=== PATIENT | male | born 1975 ===

== ENCOUNTER 2018-03-16 17:26 | Inpatient (IN) | payer SELFPAY ==
[~2018-03-16] VITALS: Ht 190.5 cm; Wt 84.5 kg
[2018-03-16] MEDS ORDERED: LORazepam 2 MG/ML VIAL IVP ONE (18:00)
[2018-03-16] MEDS ORDERED: SODIUM CHLORIDE 0.9% 1,000 ML IV ONE (18:00)
[2018-03-16 18:22] LABS: ANION GAP 12 mmol/L (8-16); CALCIUM, TOTAL 8.6 mg/dL (8.8-10.5); CARBON DIOXIDE 27 mmol/L (22-29); CHLORIDE 96 mmol/L (98-107); CREATININE 0.91 mg/dL (0.60-1.30); GLOMERULAR FILTR. RATE CALC > 60 mL/min (>60); GLUCOSE,RANDOM 96 mg/dL (70-110); POTASSIUM 3.6 mmol/L (3.5-5.1); SODIUM SERUM 135 mmol/L (136-145); UREA NITROGEN, BLOOD 7 mg/dL (7-18)
[2018-03-16 18:27] LABS: ALANINE AMINOTRANSFERASE 207 U/L (12-78); ALBUMIN 3.8 g/dL (3.4-5.0); ALKALINE PHOSPHATASE 117 U/L (46-116); ASPARTATE AMINOTRANSFERASE 232 U/L (15-37); BILIRUBIN,TOTAL 1.2 mg/dL (0.1-1.0); TOTAL PROTEIN, SERUM 7.3 g/dL (6.4-8.2)
[2018-03-16 18:30] LABS: BASOPHILS % (AUTO) 1.5 % (0.0-2.0); EOSINOPHILS % (AUTO) 0.4 % (1.0-6.0); HEMOGLOBIN 14.3 g/dL (13.5-17.5); LYMPHOCYTES # (AUTO) 0.7 K/uL (1.0-4.8); MEAN CORPUSCULAR HEMOGLOBIN 33.3 pg (26.0-34.0); MEAN CORPUSCULAR HGB CONC 34.9 G/dL (31.0-37.0); MEAN CORPUSCULAR VOLUME 96 fL (80-100); MONOCYTES # (AUTO) 0.3 K/uL (0.1-1.0); MONOCYTES % (AUTO) 9.5 % (2.0-9.0); NEUTROPHILS # (AUTO) 2.4 K/uL (1.8-7.7); NEUTROPHILS % (AUTO) 68.6 % (40.0-70.0); RED CELL DISTRIBUTION WIDTH 16.9 % (11.5-14.5)
[2018-03-16 18:56] LABS: PLATELET COUNT (AUTO) 77 K/uL (150-450)
[2018-03-16] MEDS ORDERED: MAGNESIUM SULFATE 2 GM, MVI, ADULT NO.1 WITH VIT K 10 ML, THIAMINE HCL 100 MG, FOLIC AC... IV ONE ×5 (19:30)
[2018-03-16] MEDS ORDERED: ONDANSETRON HCL 4 MG/2 ML VIAL IVP PRN ×2 (19:30→21:00)
[2018-03-16] MEDS ORDERED: ACETAMINOPHEN 325 MG TABLET PO PRN ×2 (19:30→21:00)
[2018-03-16] MEDS ORDERED: 0.9% SODIUM CHLORIDE 10 ML SYRINGE IVP PRN (19:30)
[2018-03-16 20:03] LABS: AMPHET/METH SCREEN,URINE NEGATIVE (NEGATIVE); BARBITURATE SCREEN, URINE NEGATIVE (NEGATIVE); BENZODIAZEPINES SCREEN,URINE POSITIVE (NEGATIVE); CANNABINOID SCREEN,URINE NEGATIVE (NEGATIVE); COCAINE SCREEN,URINE NEGATIVE (NEGATIVE); METHADONE SCREEN, URINE NEGATIVE (NEGATIVE); OPIATE SCREEN,URINE NEGATIVE (NEGATIVE)
[2018-03-16 20:06] LABS: PHENCYCLIDINE SCREEN,URINE NEGATIVE (NEGATIVE)
[2018-03-16] MEDS ORDERED: ZOLPIDEM TARTRATE 5 MG TABLET PO PRN (21:00)
[2018-03-16] MEDS ORDERED: IPRATROPIUM BROMIDE 0.5 MG/2.5 ML NEB SOLUTION NEB PRN (21:00)
[2018-03-16] MEDS ORDERED: MAGNESIUM HYDROXIDE SUSPENSION 30 ML UDCUP PO PRN (21:00)
[2018-03-16] MEDS ORDERED: ALBUTEROL SULFATE 2.5 MG/0.5 ML NEB SOLUTION NEB PRN (21:00)
[2018-03-16] MEDS ORDERED: HYDROCODONE/ACETAMINOPHEN 5-325 MG TABLET PO PRN (21:00)
[2018-03-16] MEDS ORDERED: BISACODYL 10 MG RECTAL RECTAL SUPPOSITORY PR PRN (21:00)
[2018-03-16 21:20] VITALS: BP 141/94
[2018-03-16 21:40] VITALS: BP 141/94
[2018-03-16] MEDS: LORazepam 1 MG TABLET PO SCH (23:13)
[2018-03-16] MEDS: FOLIC ACID 1 MG TABLET PO SCH (23:13)
[2018-03-16] MEDS: HEPARIN SODIUM,PORCINE 5,000 UNITS/ML VIAL SQ SCH (23:13)
[2018-03-16] MEDS: THIAMINE HCL 100 MG TABLET PO SCH (23:13)
[2018-03-16] MEDS: DEXTROSE 5%-0.45% SODIUM CHL 1,000 ML IV SCH (23:14)
[2018-03-16 23:56] VITALS: BP 125/83
[2018-03-17 04:12] VITALS: BP 129/77
[2018-03-17 06:23] LABS: BASOPHILS % (AUTO) 1.1 % (0.0-2.0); EOSINOPHILS % (AUTO) 2.1 % (1.0-6.0); HEMATOCRIT 38.8 % (41-53); HEMOGLOBIN 13.6 g/dL (13.5-17.5); LYMPHOCYTES # (AUTO) 1.1 K/uL (1.0-4.8); LYMPHOCYTES % (AUTO) 26.9 % (22.0-44.0); MEAN CORPUSCULAR HEMOGLOBIN 33.3 pg (26.0-34.0); MEAN CORPUSCULAR VOLUME 95 fL (80-100); MONOCYTES # (AUTO) 0.4 K/uL (0.1-1.0); MONOCYTES % (AUTO) 9.4 % (2.0-9.0); NEUTROPHILS # (AUTO) 2.5 K/uL (1.8-7.7); NEUTROPHILS % (AUTO) 60.5 % (40.0-70.0); RED BLOOD CELL COUNT(AUTO) 4.08 MIL/uL (4.50-5.90); RED CELL DISTRIBUTION WIDTH 17.1 % (11.5-14.5)
[2018-03-17 06:33] LABS: ALANINE AMINOTRANSFERASE 172 U/L (12-78); ALBUMIN 3.3 g/dL (3.4-5.0); ALKALINE PHOSPHATASE 106 U/L (46-116); AMYLASE 65 U/L (25-115); ANION GAP 7 mmol/L (8-16); ASPARTATE AMINOTRANSFERASE 185 U/L (15-37); BILIRUBIN,TOTAL 1.3 mg/dL (0.1-1.0); CALCIUM, TOTAL 8.1 mg/dL (8.8-10.5); CARBON DIOXIDE 29 mmol/L (22-29); CHLORIDE 101 mmol/L (98-107); CREATININE 0.73 mg/dL (0.60-1.30); GLOMERULAR FILTR. RATE CALC > 60 mL/min (>60); GLUCOSE,RANDOM 82 mg/dL (70-110); LIPASE 220 U/L (73-393); POTASSIUM 3.3 mmol/L (3.5-5.1); SODIUM SERUM 137 mmol/L (136-145); TOTAL PROTEIN, SERUM 6.7 g/dL (6.4-8.2)
[2018-03-17 06:37] LABS: PLATELET COUNT (AUTO) 67 K/uL (150-450)
[2018-03-17 06:48] LABS: UREA NITROGEN, BLOOD 3 mg/dL (7-18)
[2018-03-17] MEDS: DEXTROSE 5%-0.45% SODIUM CHL 1,000 ML IV SCH (06:58)
[2018-03-17 07:19] VITALS: BP 114/70
[2018-03-17] MEDS: THIAMINE HCL 100 MG TABLET PO SCH (08:14)
[2018-03-17] MEDS: FOLIC ACID 1 MG TABLET PO SCH (08:15)
[2018-03-17] MEDS: LORazepam 1 MG TABLET PO SCH ×2 (08:15→13:34)
[2018-03-17] MEDS: HEPARIN SODIUM,PORCINE 5,000 UNITS/ML VIAL SQ SCH (08:15)
[2018-03-17] MEDS ORDERED: PANTOPRAZOLE SODIUM 40 MG DR TABLET PO SCH (09:00)
[2018-03-17] MEDS ORDERED: NICOTINE 21 MG/24 HOUR PATCH TD SCH (09:00)
[2018-03-17] MEDS ORDERED: POTASSIUM CHLORIDE 20 MEQ ER TABLET PO ONE (10:00)
[2018-03-17 12:00] VITALS: BP 126/77
[2018-03-17] MEDS ORDERED: THIA100T67 PO (13:39)
[2018-03-17] MEDS ORDERED: FOLI1 PO (13:40)
[2018-03-17] MEDS ORDERED: LIB25 PO (13:41)
[2018-03-17] MEDS ORDERED: LEVE500T53 PO (13:41)
== END 2018-03-17 14:55 | disposition home or self-care (01) | DRG 101 ==
LOC: EMS 17:31 → 5N 19:45
PROVIDERS: ADMIT Internal Medicine; ATTEND Internal Medicine
DX: G40.89 Other seizures (principal); F10.239 Alcohol dependence with withdrawal, unspecified; E87.1 Hypo-osmolality and hyponatremia; D72.819 Decreased white blood cell count, unspecified; E83.51 Hypocalcemia; R74.0 Nonspecific elevation of levels of transaminase and lactic acid dehydrogenase [LDH]; D69.6 Thrombocytopenia, unspecified; F17.210 Nicotine dependence, cigarettes, uncomplicated; Z71.6 Tobacco abuse counseling; Z71.41 Alcohol abuse counseling and surveillance of alcoholic
CPT/HCPCS: 93005; 96365; 96375; G0378; G0480; J1644; J2060; J3411; J3475; J3490; J7030